=== PATIENT | female | born 1955 | race Caucasian/White ===

== ENCOUNTER 2023-07-30 15:35 | Outpatient (CLI) | payer MEDICARE, OTHER | END 2023-07-30 23:59 | disposition home or self-care (01) | LOC: RAD 15:35 | PROVIDERS: ATTEND Family Medicine | DX: S86.012A Strain of left Achilles tendon, initial encounter (principal); M76.62 Achilles tendinitis, left leg; M21.6X2 Other acquired deformities of left foot; M19.072 Primary osteoarthritis, left ankle and foot; X58.XXXA Exposure to other specified factors, initial encounter; Y93.89 Activity, other specified; Y92.89 Other specified places as the place of occurrence of the external cause; Y99.8 Other external cause status | CPT/HCPCS: 73718 ==